=== PATIENT | male | born 1980 | race Caucasian/White ===

== ENCOUNTER 2023-08-14 10:14 | Inpatient (IN) | payer MEDICAID ==
[~2023-08-14] VITALS: Ht 172.7 cm; Wt 83.0 kg
[2023-08-14 11:58] LABS: BASOPHILS % 0.5 % (0.0-2.0); EOSINOPHILS % 5.3 % (0.0-5.0); HEMATOCRIT. 23.5 % (42.0-52.0); HEMOGLOBIN. 7.7 g/dL (14.0-18.0); LYMPHOCYTES % 14.4 % (20.0-50.0); MEAN CORPUSCULAR HEMOGLOBIN 29.9 pg (28.0-32.0); MEAN CORPUSCULAR HGB CONC 32.6 g/dL (31.0-37.0); MEAN CORPUSCULAR VOLUME 91.7 fL (80.0-94.0); MONOCYTES % 6.5 % (2.0-8.0); NEUTROPHILS % 73.3 % (40.0-76.0); PLATELET 362 x1000/uL (130-400); RED BLOOD CELL COUNT 2.57 mill/uL (4.7-6.1); RED CELL DISTRIBUTION WIDTH 12.9 % (11.6-14.6); WHITE BLOOD COUNT 10.4 x1000/uL (4.5-11.0)
[2023-08-14 13:23] LABS: ALANINE AMINOTRANSFERASE < 7 IU/L (10-49); ALBUMIN 3.4 g/dL (3.2-4.8); ASPARTATE AMINOTRANSFERASE 12 IU/L (<34); BILIRUBIN TOTAL < 0.2 mg/dL (0.1-1.0); CARBON DIOXIDE 16 mEq/L (21-32); CHLORIDE 115 mEq/L (98-107); GLUCOSE 126 mg/dL (70-105); PROTEIN TOTAL 7.3 g/dL (6.0-8.3); SODIUM 141 mEq/L (136-145); TROPONIN I HIGH SENSITIVITY 4 ng/L (3.0-53); UREA NITROGEN BLOOD 85 mg/dL (9-23)
[2023-08-14 13:52] LABS: POTASSIUM 6.4 mEq/L (3.5-5.1)
[2023-08-14 13:53] LABS: CREATININE 6.5 mg/dL (0.6-1.3)
[2023-08-14 18:30] VITALS: PULSE 84; RESP 16; O2SAT 98
[2023-08-14] MEDS ORDERED: ALBUTEROL (0.083%) 2.5MG/3ML NEB HHN ONE (18:30)
[2023-08-14] MEDS ORDERED: SODIUM POLYSTYRENE SULFONATE 15 G/60 ML BOT PO ONE (18:30)
[2023-08-14] MEDS ORDERED: SODIUM BICARBONATE 8.4% 1 MEQ/ML 50ML SYR IV ONE (18:30)
[2023-08-15] MEDS ORDERED: BENA40TA91 PO (01:04)
[2023-08-15] MEDS ORDERED: DOCU250C69 PO (01:04)
[2023-08-15] MEDS ORDERED: CALC667T6 PO (01:04)
[2023-08-15] MEDS ORDERED: ATOR20TA65 PO (01:04)
[2023-08-15] MEDS ORDERED: FURO20TA4 PO (01:04)
[2023-08-15] MEDS ORDERED: AMLO5TAB88 PO (01:04)
[2023-08-15] MEDS ORDERED: FERR325T6 PO (01:04)
[2023-08-15] MEDS ORDERED: ONDANSETRON HCL 4MG/2ML INJ IV PRN (01:30)
[2023-08-15] MEDS ORDERED: LACTULOSE 20G/30ML UDC PO NR (03:45)
[2023-08-15] MEDS ORDERED: SODIUM POLYSTYRENE SULFONATE 15 G/60 ML BOT PO NR (03:45)
[2023-08-15 04:00] VITALS: BP 152/87; PULSE 110; RESP 20; TEMP 97.9
[2023-08-15] MEDS ORDERED: SODIUM POLYSTYRENE SULFONATE 15 G/60 ML BOT PO PRN (04:00)
[2023-08-15] MEDS ORDERED: LACTULOSE 20G/30ML UDC PO PRN (04:00)
[2023-08-15] MEDS: SODIUM CHLORIDE 0.45% 1,000 ML IV SCH ×2 (04:21→23:54)
[2023-08-15 05:03] VITALS: BP 123/72; PULSE 120; RESP 16; TEMP 98
[2023-08-15 05:41] LABS: CLARITY URINE CLEAR (CLEAR); COLOR URINE YELLOW (YELLOW); GLUCOSE URINE NEGATIVE (NEGATIVE); KETONES URINE NEGATIVE (NEGATIVE); LEUKOCYTE ESTERASE URINE NEGATIVE (NEGATIVE); NITRITE URINE NEGATIVE (NEGATIVE); OCCULT BLOOD URINE NEGATIVE (NEGATIVE); PH URINE 5.5 (4.5-8.0); PROTEIN URINE 2+ (NEGATIVE); SPECIFIC GRAVITY URINE 1.011 (1.005-1.030); UROBILINOGEN URINE 0.2 E.U./dL (0.2-1.0)
[2023-08-15] MEDS ORDERED: EPOETIN ALFA-EPBX 4,000 UNIT/ML VIAL SUBCUT NR (06:00)
[2023-08-15 06:01] LABS: BACTERIA URINE NONE SEEN; RBC URINE NONE SEEN /hpf (0-2); SQUAMOUS EPITHELIAL CELL URINE NONE SEEN /lpf (RARE/1+); WBC URINE NONE SEEN /hpf (0-2)
[2023-08-15] MEDS ORDERED: HEPARIN 1000 UNITS/ML 10ML ONE (07:41)
[2023-08-15] MEDS ORDERED: LIDOCAINE HCL 1% 10 MG/ML 10ML VIAL ONE (07:41)
[2023-08-15 07:58] VITALS: BP 144/82; PULSE 108; RESP 20; TEMP 98.2
[2023-08-15 08:00] LABS: PROTHROMBIN TIME 11.1 sec (9.6-11.0)
[2023-08-15 08:24] LABS: CALCIUM 7.4 mg/dL (8.7-10.4); POTASSIUM 5.4 mEq/L (3.5-5.1)
[2023-08-15 08:28] LABS: CREATININE 6.1 mg/dL (0.6-1.3)
[2023-08-15] MEDS ORDERED: AMLODIPINE 5MG TABLET PO SCH (09:00)
[2023-08-15] MEDS: FERROUS SULFATE 325MG TABLET PO SCH ×2 (09:24→17:01)
[2023-08-15] MEDS: DOCUSATE SODIUM 100MG CAPSULE PO SCH ×2 (09:24→17:01)
[2023-08-15] MEDS: HEPARIN 5000 UNITS/ML VIAL SUBCUT SCH ×2 (09:25→21:28)
[2023-08-15 12:07] VITALS: BP 152/86; PULSE 106; RESP 20; TEMP 97.2
[2023-08-15] MEDS ORDERED: FUROSEMIDE 20MG/2ML VIAL IVP NR (15:45)
[2023-08-15 16:00] VITALS: BP 144/84; PULSE 102; RESP 20; TEMP 98.2
[2023-08-15] MEDS: AMLODIPINE 5MG TABLET PO SCH (17:01)
[2023-08-15] MEDS: CALCIUM ACETATE 667MG CAPSULE PO SCH (17:01)
[2023-08-15 20:00] VITALS: BP 139/80; PULSE 104; RESP 17; TEMP 97.5
[2023-08-15] MEDS ORDERED: EPOETIN ALFA 4000UNITS/ML VIAL SUBCUT SCH (21:00)
[2023-08-15] MEDS: ATORVASTATIN CALCIUM 20MG TABLET PO SCH (21:22)
[2023-08-16] VITALS: BP 111/66; PULSE 98; RESP 16; TEMP 97.8
[2023-08-16 04:00] VITALS: BP 141/56; PULSE 95; RESP 18; TEMP 97.6
[2023-08-16 04:12] LABS: *CREATININE RANDOM URINE 52.4 mg/dL (Not Estab.); MICROALBUMIN RANDOM URINE 456.1 ug/mL (Not Estab.)
[2023-08-16 06:58] LABS: CALCIUM 7.1 mg/dL (8.7-10.4); POTASSIUM 4.5 mEq/L (3.5-5.1)
[2023-08-16 07:01] LABS: CREATININE 5.3 mg/dL (0.6-1.3)
[2023-08-16 08:00] VITALS: BP 139/80; PULSE 94; RESP 18; TEMP 98.5
[2023-08-16] MEDS ORDERED: AMLODIPINE 5MG TABLET PO SCH (09:00)
[2023-08-16] MEDS: FERROUS SULFATE 325MG TABLET PO SCH ×2 (09:59→16:47)
[2023-08-16] MEDS: AMLODIPINE 5MG TABLET PO SCH ×2 (09:59→16:47)
[2023-08-16] MEDS: CALCIUM ACETATE 667MG CAPSULE PO SCH (09:59)
[2023-08-16] MEDS: DOCUSATE SODIUM 100MG CAPSULE PO SCH ×2 (09:59→16:47)
[2023-08-16] MEDS: HEPARIN 5000 UNITS/ML VIAL SUBCUT SCH ×2 (09:59→20:56)
[2023-08-16] MEDS: FUROSEMIDE 20MG TABLET PO SCH (10:02)
[2023-08-16 12:10] VITALS: BP 154/84; PULSE 72; RESP 18; TEMP 98.6
[2023-08-16] MEDS ORDERED: BISACODYL 5MG TABLET PO NR (14:01)
[2023-08-16] MEDS ORDERED: IRON SUCROSE COMPLEX 100 MG/5 ML ML IV NR (14:03)
[2023-08-16 16:04] VITALS: BP 108/52; PULSE 76; RESP 18; TEMP 98.2
[2023-08-16] MEDS: SODIUM CHLORIDE 0.45% 1,000 ML IV SCH (16:47)
[2023-08-16 20:00] VITALS: BP 156/78; PULSE 82; RESP 18; TEMP 98.6
[2023-08-16] MEDS: ATORVASTATIN CALCIUM 20MG TABLET PO SCH (20:55)
[2023-08-16] MEDS ORDERED: EPOETIN ALFA 4000UNITS/ML VIAL SUBCUT NR (22:00)
[2023-08-17] VITALS: BP_SYST 110; BP_SYST 142; BP_DIAS 68; BP_DIAS 72; PULSE 81; RESP 20; TEMP 98.2
[2023-08-17 04:00] VITALS: BP 115/72; PULSE 89; RESP 18; TEMP 99.1
[2023-08-17 07:15] LABS: CALCIUM 6.8 mg/dL (8.7-10.4); POTASSIUM 4.8 mEq/L (3.5-5.1)
[2023-08-17 08:00] VITALS: BP 130/76; PULSE 82; RESP 20; TEMP 98.9
[2023-08-17] MEDS: CALCIUM ACETATE 667MG CAPSULE PO SCH (08:18)
[2023-08-17] MEDS: HEPARIN 5000 UNITS/ML VIAL SUBCUT SCH (08:20)
[2023-08-17] MEDS: FERROUS SULFATE 325MG TABLET PO SCH (08:21)
[2023-08-17] MEDS: FUROSEMIDE 20MG TABLET PO SCH (08:21)
[2023-08-17] MEDS: DOCUSATE SODIUM 100MG CAPSULE PO SCH (08:23)
[2023-08-17] MEDS: AMLODIPINE 5MG TABLET PO SCH (08:24)
[2023-08-17] MEDS ORDERED: LOSARTAN 100 MG TABLET PO SCH (09:00)
[2023-08-17 12:00] VITALS: BP 135/71; PULSE 80; RESP 19; TEMP 98.6
[2023-08-17 14:04] VITALS: BP 135/71; PULSE 80; TEMP 98.6; O2SAT 98
== END 2023-08-17 18:46 | disposition home or self-care (01) | DRG 194 ==
LOC: ER 10:14 → CANBEDREQ 18:00 → MICUSO 22:25 → 8WST 23:55
PROVIDERS: ADMIT Internal Medicine; ATTEND Internal Medicine
PROC: 02HV33Z Insertion of Infusion Device into Superior Vena Cava, Percutaneous Approach (ICD-10-PCS; principal; 2023-08-15)
PROC: B518YZA Fluoroscopy of Superior Vena Cava using Other Contrast, Guidance (ICD-10-PCS; 2023-08-15)
DX: I13.2 Hypertensive heart and chronic kidney disease with heart failure and with stage 5 chronic kidney disease, or end stage renal disease (principal); N17.9 Acute kidney failure, unspecified; E87.0 Hyperosmolality and hypernatremia; D63.1 Anemia in chronic kidney disease; E83.51 Hypocalcemia; E11.21 Type 2 diabetes mellitus with diabetic nephropathy; E11.22 Type 2 diabetes mellitus with diabetic chronic kidney disease; E87.5 Hyperkalemia; N18.5 Chronic kidney disease, stage 5; E78.00 Pure hypercholesterolemia, unspecified; Z79.899 Other long term (current) drug therapy; I50.20 Unspecified systolic (congestive) heart failure
CPT/HCPCS: 36415; 36556; 71045; 76770; 76937; 77001; 80048; 80053; 80061; 81003; 82043; 82570; 83880; 84484; 85025; 93005; 93306; 94640; 99285; C1752; C1760; C1887; J0885; J1644; J1940; J3490; L8514

== ENCOUNTER 2025-05-19 10:30 | Emergency (ER) | payer OTHER ==
[~2025-05-19] VITALS: Ht 167.6 cm; Wt 82.0 kg
[~2025-05-19 10:30] MED LIST: AMLO5TAB88 PO; ATOR20TA65 PO; BENA40TA91 PO; CALC667T6 PO; DOCU-405 PO; FERR325T6 PO; FURO20TA4 PO
[2025-05-19 10:42] VITALS: O2SAT 100
[2025-05-19 12:24] LABS: HEMATOCRIT. 29.9 % (42.0-52.0); HEMOGLOBIN. 9.4 g/dL (14.0-18.0); MEAN PLATELET VOLUME 10.1 fl (7.4-10.4); PLATELET 239 x1000/uL (130-400); RED BLOOD CELL COUNT 3.26 mill/uL (4.7-6.1); RED CELL DISTRIBUTION WIDTH 15.1 % (11.6-14.6)
[2025-05-19 12:39] LABS: UREA NITROGEN BLOOD 62 mg/dL (9-23)
[2025-05-19 12:40] LABS: ASPARTATE AMINOTRANSFERASE 17 IU/L (<34)
[2025-05-19 12:41] LABS: BILIRUBIN DIRECT < 0.1 mg/dL (<=3.0); BILIRUBIN TOTAL 0.2 mg/dL (0.1-1.0); PROTEIN TOTAL 6.8 g/dL (6.0-8.3)
[2025-05-19 12:57] LABS: CREATININE 6.9 mg/dL (0.6-1.3)
[2025-05-19] MEDS: ACETAMINOPHEN 325MG TABLET PO ONE (13:25)
[2025-05-19 13:48] VITALS: BP 156/86; PULSE 86; RESP 18; TEMP 36.8; O2SAT 100
[2025-05-19 14:58] LABS: BAND% 5.0 % (1.0-6.0); EOSINOPHILS % MANUAL 13.0 % (0.0-5.0); LYMPHOCYTES % MANUAL 20.0 % (20.0-50.0); MONOCYTES % MANUAL 2.0 % (2.0-8.0); NEUTROPHILS % MANUAL 60.0 % (45.0-75.0); PLATELET ESTIMATE NORMAL; PLATELET SATELLITISM FEW
== END 2025-05-19 13:50 | disposition home or self-care (01) ==
LOC: ER 10:30
DX: N18.5 Chronic kidney disease, stage 5 (principal); M79.10 Myalgia, unspecified site; E11.22 Type 2 diabetes mellitus with diabetic chronic kidney disease; E78.00 Pure hypercholesterolemia, unspecified; I12.0 Hypertensive chronic kidney disease with stage 5 chronic kidney disease or end stage renal disease; D64.9 Anemia, unspecified; F12.90 Cannabis use, unspecified, uncomplicated; Z79.899 Other long term (current) drug therapy
CPT/HCPCS: 36415; 80048; 80076; 82550; 85025; 99283

== ENCOUNTER 2025-08-18 17:53 | Emergency (ER) | payer OTHER ==
[~2025-08-18] VITALS: Ht 170.2 cm; Wt 90.0 kg
[2025-08-18 18:05] VITALS: O2SAT 97
[2025-08-18 20:38] VITALS: BP 133/98; PULSE 85; RESP 18; TEMP 36.7; O2SAT 98
== END 2025-08-18 21:03 | disposition home or self-care (01) ==
LOC: ER 17:53
DX: Z48.02 Encounter for removal of sutures (principal); E11.9 Type 2 diabetes mellitus without complications; E78.00 Pure hypercholesterolemia, unspecified; I10 Essential (primary) hypertension; Z79.899 Other long term (current) drug therapy; Z99.2 Dependence on renal dialysis
CPT/HCPCS: 99283